=== PATIENT | female | born 1985 | race Caucasian/White ===

== ENCOUNTER 2020-08-03 08:07 | Outpatient (CLI) | payer OTHER, SELFPAY ==
[2020-08-03 09:03] LABS: Glucose Fasting Gestational 98 mg/dL (>/=95)
[2020-08-03 10:29] LABS: Glucose 1 Hour Gest 228 mg/dL (>/=180)
[2020-08-03 11:46] LABS: Glucose 2 Hour Gest 172 mg/dL (>/= 155)
[2020-08-03 12:38] LABS: Glucose 3 Hour Gest 106 mg/dL (>/=140)
== END 2020-08-03 08:08 | disposition home or self-care (01) ==
LOC: ANHLAB 08:17
PROVIDERS: PCP Physician Assistant; Visit Provider Obstetrics & Gynecology
DX: Z34.80 Encounter for supervision of other normal pregnancy, unspecified trimester (principal); Z3A.00 Weeks of gestation of pregnancy not specified
CPT/HCPCS: 36415; 82951; 82952

== ENCOUNTER 2020-08-14 13:16 | Outpatient (RCR) | payer OTHER, SELFPAY | END 2020-10-30 14:43 | disposition home or self-care (01) | LOC: ANHDMC 13:16 | PROVIDERS: PCP Physician Assistant; Visit Provider Obstetrics & Gynecology | DX: O24.410 Gestational diabetes mellitus in pregnancy, diet controlled (principal); Z3A.00 Weeks of gestation of pregnancy not specified; Z71.89 Other specified counseling | CPT/HCPCS: G0108 ==

== ENCOUNTER 2020-09-14 14:52 | Outpatient (RCR) | payer OTHER, SELFPAY ==
[2020-08-08 17:33] VITALS: BP 122/71; PULSE 90
[2020-08-16 08:22] VITALS: BP 120/69; PULSE 94
[2020-09-01 16:25] VITALS: BP 118/72; PULSE 85
[2020-09-07 16:16] VITALS: BP 120/80; PULSE 91
[2020-09-14 15:29] VITALS: BP 115/68; PULSE 85
== END 2020-09-25 07:42 | disposition home or self-care (01) ==
LOC: ANHOBOP 14:52
PROVIDERS: PCP Physician Assistant; Visit Provider Obstetrics & Gynecology
DX: O24.419 Gestational diabetes mellitus in pregnancy, unspecified control (principal); Z3A.32 32 weeks gestation of pregnancy; Z3A.33 33 weeks gestation of pregnancy; Z3A.34 34 weeks gestation of pregnancy; Z3A.36 36 weeks gestation of pregnancy; Z3A.37 37 weeks gestation of pregnancy
CPT/HCPCS: 59025

== ENCOUNTER 2020-09-20 08:11 | Outpatient (CLI) | payer OTHER, SELFPAY ==
[2020-09-20 08:49] LABS: Hematocrit 37.6 % (37.0-47.0); Hemoglobin 12.9 g/dL (12.0-15.0); Mean Corpuscular HGB Conc 34.3 g/dl (32-36); Mean Corpuscular Volume 93.3 fl (80-100); Mean Platelet Volume 10.8 fl (7.4-10.4); Platelet Count Result 182 k/mm3 (150-375); Red Blood Count 4.03 M/mm3 (4.2-5.4); Red Cell Distribution Width 13.4 % (11.5-14.5)
[2020-09-20 11:37] LABS: Rapid Plasma Reagin Non-Reactive (NonReactive)
--- NOTE | 2020-09-22 09:13 | P.HP_ITS ---
H&P: HPI History of Present Illness Date/Time: 09/22/20 09:13 Chief Complaint: Here for c section Narrative: 35 y/o at 39 weeks gestation with A1DM here for scheduled repeat . complicated by COVID-19 infection in June. She has made a full recovery. She had many delays in working up and monitoring her gestational diabetes, but her glycemic control has been overall OK with diet con trol. She had a prior and desires a repeat. EFW on US at 34 w 6 d was 50th percentile, 5#10oz. Review of Systems Review of Systems: All systems reviewed & are unremarkable except as noted in HPI and below PMFSH Past Medical History Medical History Anxiety Surgical History Surgical History History of delivery History of surgery on wrist Meds Home Medications and Allergies Home Medications Medication Instructions Recorded Confirmed Type PNV cmb#95-ferrous fumarate-FA 1 tablet PO DAILY 08/16/20 08/16/20 History [] Allergies Allergy/AdvReac Type Severity Reaction Status Date / Time No Known Allergies Allergy Mild Verified 08/16/20 08:00 Exam Const: Orientation/consciousness: patient oriented x3 Other: Well- developed, well-nourished female in no acute distress. Neck: Thyroid: thyroid normal Lymphatic: no lymphadenopathy noted (in neck, axilla or inguinal nodes) Resp: Effort & Inspection: normal respiratory effort Auscultation: clear to auscultation bilaterally Cardio: Rate: regular rate Rhythm: regular rhythm Heart sounds: S1 normal heart sound present and S2 normal heart sound present GI: Other: ABD: Soft, nontender, nondistended, gravid. FHR auscultated. FH 38 cm. No guarding or rebound tenderness. No hepatosplenomegaly. : General: Yes no CVA tenderness Other: Cervix closed, thick Back/Spine/Pelvis: Back: no CVA tenderness Skin: General skin exam: normal color and no rashes or lesions noted Neuro: General: patient oriented x3 Extrem: Other: Extremities: nontender with no edema Psych: Mental Status: mental status grossly normal Affect: normal affect Assessment and Plan Assessment and plan (1) Gestational diabetes mellitus (GDM): Code(s): O24.419 - Gestational diabetes mellitus in , unspecified control Status: Acute (2) History of delivery: Code(s): Z98.891 - History of uterine scar from previous surgery Status: Acute Assessment and Plan: A: IUP at 39 weeks with prior , current A1DM. P: Reviewed TOLAC vs repeat . She desires the latter. She understands risks of surgery to include risks of anesthesia, risks of pain, infection, bleeding, blood products, thromboembolic phenomena and damage to adjacent structures such as bowel, bladder, ureters, blood vessels and nerves. She understands all these risks and elects to proceed with surgery.
== END 2020-09-20 08:12 | disposition home or self-care (01) ==
PROVIDERS: PCP Physician Assistant; Visit Provider Obstetrics & Gynecology
DX: Z01.818 Encounter for other preprocedural examination (principal); Z98.891 History of uterine scar from previous surgery; O24.419 Gestational diabetes mellitus in pregnancy, unspecified control
CPT/HCPCS: 36415; 85027; 86592; 86850; 86900; 86901

== ENCOUNTER 2020-09-22 09:37 | Inpatient (IN) | payer OTHER, SELFPAY ==
[2020-09-22] VITALS (63 sets, daily range): BP systolic 86–128; BP diastolic 59–98; PULSE 51–100; RESP 12–18; TEMP 36.3–37.2; O2SAT 96–100; BMI 37.9
--- NOTE | 2020-09-22 09:21 | HP_ITS ---
This report was moved to the correct visit, [id number] on 09/27/20. Original report was signed by Vinicius Harris MD on 09/22/20 09. H&P: HPI History of Present Illness Date/Time: 09/22/20 09:13 Chief Complaint: Here for c section Narrative: 35 y/o at 39 weeks gestation with A1DM here for scheduled repeat . complicated by COVID-19 infection in June. She has made a full recovery. She had many delays in working up and monitoring her gestational diabetes, but her glycemic control has been overall OK with diet control. She had a prior and desires a repeat. EFW on US at 34 w 6 d was 50th percentile, 5#10oz. Review of Systems Review of Systems: All systems reviewed & are unremarkable except as noted in HPI and below PMFSH Past Medical History Medical History Anxiety Surgical History Surgical History History of delivery History of surgery on wrist Meds Home Medications and Allergies Home Medications Medication Instructions Recorded Confirmed Type PNV cmb#95-ferrous fumarate-FA 1 tablet PO DAILY 08/16/20 08/16/20 History [] Allergies Allergy/AdvReac Type Severity Reaction Status Date / Time No Known Allergies Allergy Mild Verified 08/16/20 08:00 Exam Const: Orientation/consciousness: patient oriented x3 Other: Well-developed, well-nourished female in no acute distress. Neck: Thyroid: thyroid normal Lymphatic: no lymphadenopathy noted (in neck, axilla or inguinal nodes) Resp: Effort & Inspection: normal respiratory effort Auscultation: clear to auscultation bilaterally Cardio: Rate: regular rate Rhythm: regular rhythm Heart sounds: S1 normal heart sound present and S2 normal heart sound present GI: Other: ABD: Soft, nontender, nondistended, gravid. FHR auscultated. FH 38 cm. No guarding or rebound tenderness. No hepatosplenomegaly. : General: Yes no CVA tenderness Other: Cervix closed, thick Back/Spine/Pelvis: Back: no CVA tenderness Skin: General skin exam: normal color and no rashes or lesions noted Neuro: General: patient oriented x3 Extrem: Other: Extremities: nontender with no edema Psych: Mental Status: mental status grossly normal Affect: normal affect Assessment and Plan Assessment and plan (1) Gestational diabetes mellitus (GDM): Code(s): O24.419 - Gestational diabetes mellitus in , unspecified control Status: Acute (2) History of delivery: Code(s): Z98.891 - History of uterine scar from previous surgery Status: Acute Assessment and Plan: A: IUP at 39 weeks with prior , current A1DM. P: Reviewed TOLAC vs repeat . She desires the latter. She understands risks of surgery to include risks of anesthesia, risks of pain, infection, bleeding, blood products, thromboembolic phenomena and damage to adjacent structures such as bowel, bladder, ureters, blood vessels and nerves. She understands all these risks and elects to proceed with surgery. Report Initialized date/time: Vinicius Harris MD 09/22/20920 Electronically signed by: Vinicius Harris MD 09/22/20920 [facility]
--- NOTE | 2020-09-22 09:37 | LDADM ---
This patient, Laura Spencer, was admitted to Labor/Delivery/Recovery 120 on 09/22/20 at 09:37. Plans for labor, pain management and were discussed with patient. Patient/family oriented to hospital policies and general routines including ID bracelet, bed and alarms, visiting hours, pain management, procedures, bathroom and other care routines, personal items, smoking policy, room service/diet and guest tray routines, security routines, and visiting hours. Patient/Family are encouraged to report perceived risks to care and to ask questions if they do not understand what they are told or what they should do. See OBIX for further documentation.
[2020-09-22] MEDS: LACTATED RINGERS 1,000 ML 125 ML IV CONT ×2 (10:25→10:54)
[2020-09-22 11:15] LABS: Glucose Point of Care 79 (65-105)
--- NOTE | 2020-09-22 11:49 | WPDANESEPPF ---
Anes - Initial Pre Proc Eval Procedure: Operation Date: 09/22/20 12:00 Proposed Procedures p Repeat Section - Vinicius Harris MD Date/Time: 09/22/20 11:49 Surgeon: Vinicius Harris MD Pre Op Diagnosis: Scheduled C Section Patient Data Age: 35 Gender: F Height: 1.63 m Weight: 100.25 kg Last Vital Signs Temp 37.1 C 09/22/20 10:50 Pulse 99 09/22/20 10:46 BP 118/75 09/22/20 10:46 Allergies Allergy/AdvReac Type Severity Reaction Status Date / Time No Known Allergies Allergy Mild Verified 08/16/20 08:00 Home Medications Medication Instructions Recorded Confirmed Type PNV cmb#95-ferrous fumarate-FA 1 tablet PO DAILY 08/16/20 08/16/20 History [] Laboratory Tests 09/22/20 11:12 POC Capillary Glucose 79 mg/dl mg/dl (65-105) Patient hx anesthesia problems: none Family hx anesthesia problems: none PMFSH Past Medical History Medical History (Updated 09/22/20 @ 11:49 by Ernie Najera MD) Anxiety Gestational diabetes mellitus (GDM) Surgical History Surgical History History of delivery History of surgery on wrist Social History Social History Smoking status: Never smoker Second hand tobacco smoke exposure: No Substance use: never Gender identity (if verbalized by the patient): Female Sexual Orientation (if Verbalized by the Patient): Straight or Heterosexual Spiritual care concerns: No Anes - Eval Final PreProcedure Day of Procedure 09/22/20 11:49 Patient weight: obese Heart: regular rate and rhythm Lungs: clear to auscultation and normal air movement Airway: Mallampati scale class II Neurological: alert and oriented Last oral intake: >/= 8 hours ASA classification: III Emergent: no Anesthetic plan: proceed Anesthesia type and monitoring: regional spinal Informed Consent: The patient's anesthetic plan and its attendant risks and benefits were discussed with the patient/family/POA. Questions were solicited and answers provided to the satisfaction of the patient/family/POA.
--- NOTE | 2020-09-22 12:07 | WPDHPUPDATE1 ---
History and Physical Update Update Date/Time: 09/22/20 12:07 History and Physical has been reviewed, including an updated exam of the patient. There are NO changes in the patient's condition. Risks, benefits, and alternatives have been discussed and questions answered. Patient agrees to proceed with procedure.
[2020-09-22] MEDS: ceFAZolin 2 GM/D5W 50 ML 2 GM/50 ML BAG IVPB (12:28)
--- NOTE | 2020-09-22 13:17 | P.PCNOB_ITS ---
OB - Delivery Note Procedure Delivery date: 09/22/20 Procedure: Procedures Operation Date: 09/22/20 12:00 <No data on this case meets the specified criteria> Repeat Low Transverse Delivery events: Gestational Diabetes Delivery monitor: external FHT and external uterine Route of delivery: (LTCS) Quantitative Blood Loss (ml): 249 Anesthesia type: Spinal Disposition: PACU Complications: None Narrative: The patient was taken to the operating room where she was prepared and draped in the usual sterile fashion in dorsal supine position with a leftward tilt. She received cefazolin preoperatively. Spinal anesthesia was found to be adequate. A Pfannenstiel skin incision was made along the previous scar line and was carried through to the underlying layer of the fascia. The fascia was incised in the midline and the incision was extended laterally. The fascia was dissected free of the underlying rectus muscles. The rectus muscles were in the midline. The peritoneum was identified, tented up and entered sharply. The peritoneal incision was extended superiorly and inferiorly with good visualization of the bladder. The bladder blade was placed. The vesicouterine peritoneum was identified, tented up and entered sharply. The incision was extended laterally and the bladder flap was developed. The bladder blade was replaced. The uterus was then incised sharply in a transverse fashion along the lower uterine segment. The incision was extended laterally. The infant's head was delivered atraumatically to the sterile field, followed by the body. The nose and mouth were bulb suctioned. After a delay, the cord was clamped and cut. The infant was handed off the field. Cord blood was collected. The placenta was removed manually and was passed off the field. The uterus was exteriorized and cleared of all clots and debris. The uterine incision was reapproximated using 0 Monocryl in a running, locked fashion. A second, imbricating layer of the same suture was placed. Excellent hemostasis resulted as did excellent reapproximation of the normal anatomy. The uterus was returned the abdomen. The pelvis was irrigated copiously with warmed normal sa line. Rigorous hemostasis was assured. The fascial layer was reapproximated using 0 Vicryl in a running fashion. The skin was closed with a running, subcuticular stitch of 4 0 Vicryl. Dermaflex was applied externally. Sponge, lap, needle and instrument counts were correct. The patient was taken to the recovery room in stable condition. The infant went to the nursery in stable condition. I was present and scrubbed the entire procedure. Baby Date of : 09/22/20 Time of : 12:46 Weeks of gestation at delivery: 39 Infant gender: Female Weight (pounds): 6 Weight (ounces): 15 presentation: vertex Placenta delivery description: Manual Removal and Normal Configuration cord vessel description: 3 Vessels and Delayed Cord Clamping score one minute: 8 score five minutes: 9
[2020-09-22] MEDS: OXYTOCIN 30 UNITS/NS 500 ML 30 UNITS/500 ML BAG 999 UNITS IV CONT (13:18)
[2020-09-22] MEDS: LACTATED RINGERS 1,000 ML 999 ML IV CONT ×2 (13:18→17:20)
--- NOTE | 2020-09-22 13:20 | PM.OBDSVD ---
DS: Admitting Diagnosis Admitting Diagnosis Admitting Diagnosis: IUP at 39 weeks Prior , desires repeat A1 Gestational Diabetes DS: Discharge Diagnosis Discharge Diagnosis (1) Gestational diabetes mellitus (GDM): Code(s): O24.419 - Gestational diabetes mellitus in , unspecified control Status: Acute (2) History of delivery: Code(s): Z98.891 - History of uterine scar from previous surgery Status: Acute OB - DS: Summary OB Procedures : None OB Procedures Intrapartum: OB Procedures: : None Peripartum Data Procedures: Procedures Operation Date: 09/22/20 12:00 <No data on this case meets the specified criteria> Yes it does. Repeat LTCS DS: Data Data Completed and Pending Labs on day of discharge: Labs from last 24 hours 09/22/20 11:12 POC Capillary Glucose 79 Discharge Plan Discharge Attending physician on discharge: Vinicius Harris Discharging Clinician: Vinicius Harris Patient Disposition: Home, Self-Care Activity: may shower, may drive after 2 weeks and pelvic rest Diet: regular Wound Care Instructions: incision open to air Discharge Instructions: Call or return if temperature above 100.4? F, increased abdominal pain, increased vaginal bleeding or any new problems. Stand Alone Forms: General Discharge Information Follow-up/Referrals: Vinicius Harris MD [Physician] - 4 Weeks Discharge Medications: New ibuprofen 600 mg tablet 600 mg PO Q6H PRN (Reason: cramps) Qty: 30 RF: 0 hydrocodone-acetaminophen 5-325 mg tablet 1 - 2 tablet PO Q6H PRN (Reason: pain) Qty: 30 RF: 0 fluoxetine 20 mg capsule 20 mg PO DAILY Qty: 30 RF: 3 No Action PNV cmb#95-ferrous fumarate-FA [] 28 mg iron- 800 mcg Tablet 1 tablet PO DAILY RF: 0 Date of admission: 09/22/20 09:37 Primary Care Provider: AndiAlex Admitting Provider: Vinicius Harris Attending physician on admission: Vinicius Harris Condition: Stable
[2020-09-22] MEDS: KETOROLAC 30 MG/ML VIAL (*BKC) IV PUSH (14:22)
[2020-09-22] MEDS: fentaNYL CITRATE INJ (*CRX) 100 MCG/2 ML VIAL 25 MCG IV PUSH (15:14)
--- NOTE | 2020-09-22 16:00 | PC.NURSE ---
Pt taken to nursery to see baby.
--- NOTE | 2020-09-22 16:40 | PC.NURSE ---
Admitted to OB Post , room 280, per stretcher. Spouse at bedside. Call light within reach.
--- NOTE | 2020-09-22 16:45 | PC.NURSE ---
Pt transferred to PP from nursery.
[2020-09-22] MEDS: OXYTOCIN 30 UNITS/NS 500 ML 30 UNITS/500 ML BAG 125 UNITS IV CONT (16:55)
--- NOTE | 2020-09-22 17:47 | PC.NURSE ---
Addendum entered by Maria Araujo RN 09/22/20 17:49: 09/22/20 at 1742 Original Note: Spoke with Hanane Nursery RN, while at bedside to get update on baby girl Tj.
[2020-09-23] VITALS: BP 115/68; PULSE 69; RESP 16; TEMP 37.1
[2020-09-23 07:00] VITALS: BP 116/75; PULSE 72; RESP 16; TEMP 36.7
--- NOTE | 2020-09-23 08:28 | PM.OBPNVD ---
OB - PN: Subj Subjective Date/time seen: 09/23/20 08:28 Narrative: Pain OK. Tolerating diet. Lab has not been able to get H/H drawn yet. OB - PN: Obj Data Labs Labs: Laboratory Results - last 24 hr 09/22/20 11:12 POC Capillary Glucose 79 OB - PN A/P Plan Comments: A: POD#1, doing well. P: Routine care. Exam Narrative: Exam Narrative: AVSS I/O OK ABD soft, nontender, fundus firm. Incision c/d/i. EXT nontender
--- NOTE | 2020-09-23 08:39 | WPDANLDNPN2 ---
Anes-Prog Note L&D-Neuraxial Date/Time: 09/23/20 08:39 Neuraxial medications: intrathecal PF morphine Opiod-related complaints: none Patient feedback: Patient satisfied with post-operative pain management.
--- NOTE | 2020-09-23 08:40 | WPDANLDPN2 ---
Anes-Prog Note L&D Date/Time: 09/23/20 08:40 Comfortable throughout: section Neuraxial method: spinal Epidural/Spinal procedure site: clean & non-tender Neuro status: Neuro function grossly intact. Cardiovascular status: normal Respiratory status: normal Airway patency: baseline Mental status: baseline Post-Op hydration status: normal Vital Signs: Last Vital Signs Temp 37.1 C 09/23/20 00:00 Pulse 69 09/23/20 00:00 Resp 16 09/23/20 00:00 BP 115/68 09/23/20 00:00 Pulse Ox 98 09/22/20 17:30 Pain score (VAS): no complaints I/O: Intake & Output 09/22/20 09/23/20 09/23/20 23:59 07:59 15:59 Intake Total 2200 1000 Output Total 196 1400 Balance 2004 - Post-procedural complaints: none Patient feedback: Patient satisfied with anesthetic care.
[2020-09-23 12:06] LABS: Basophils Percent Auto 0.5 % (0.2-1.2); Eosinophils Absolute Auto 0.2 K/mm3 (0-0.3); Eosinophils Percent Auto 2.5 % (0-4.4); Hematocrit 35.9 % (37.0-47.0); Hemoglobin 12.5 g/dL (12.0-15.0); Immature Granulocyte Absolute 0.05 K/mm3 (0.00-0.031); Immature Granulocyte Percent A 0.6 % (0-0.5); Lymphocytes Absolute Auto 1.73 K/mm3 (0.9-3.2); Lymphocytes Percent Auto 19.6 % (18.3-44.2); Mean Corpuscular HGB Conc 34.8 g/dl (32-36); Mean Corpuscular Hemoglobin 32.2 pg (26-34); Mean Corpuscular Volume 92.5 fl (80-100); Mean Platelet Volume 10.5 fl (7.4-10.4); Monocytes Absolute Auto 0.6 K/mm3 (0.1-0.6); Monocytes Percent Auto 6.7 % (2.6-8.5); Neutrophils Absolute Auto 6.2 K/mm3 (1.3-6.7); Neutrophils Percent Auto 70.1 % (45.5-73.1); Platelet Count Result 193 k/mm3 (150-375); Red Blood Count 3.88 M/mm3 (4.2-5.4); Red Cell Distribution Width 13.5 % (11.5-14.5); White Blood Count 8.8 K/mm3 (4.5-10.0)
[2020-09-23] MEDS: IBUPROFEN 600 MG TABLET PO (16:33)
[2020-09-23] MEDS: DOCUSATE SODIUM 100 MG CAPSULE PO (16:34)
[2020-09-23 18:50] VITALS: BP 109/71; PULSE 81; RESP 16; TEMP 36.9
[2020-09-24 07:15] VITALS: BP 124/85; PULSE 79; RESP 18; TEMP 36.3
[2020-09-24] MEDS: IBUPROFEN 600 MG TABLET PO (07:15)
[2020-09-24] MEDS: DOCUSATE SODIUM 100 MG CAPSULE PO (07:15)
--- NOTE | 2020-09-24 09:16 | PM.OBPNVD ---
OB - PN: Subj Subjective Date/time seen: 09/24/20 09:16 Narrative: Pain OK. Tolerating diet. Would like to go home. OB - PN: Obj Data Labs CBC & Chem 7: 09/23/20 11:58 Labs: Laboratory Results - last 24 hr 09/23/20 11:58 WBC 8.8 RBC 3.88 L Hgb 12.5 Hct 35.9 L MCV 92.5 MCH 32.2 MCHC 34.8 RDW 13.5 Plt Count 193 MPV 10.5 H Immature Gran % (Auto) 0.6 H Neut % (Auto) 70.1 Lymph % (Auto) 19.6 [place] % (Auto) 6.7 Eos % (Auto) 2.5 Baso % (Auto) 0.5 Lymph # (Auto) 1.73 [place] # (Auto) 0.6 Eos # (Auto) 0.2 Baso # (Auto) 0.0 Abs Immat Gran (auto) 0.05 H Absolute Neuts (auto) 6.2 Absolute Nucleated RBC 0.0 Nucleated RBC % 0.0 OB - PN A/P Plan Comments: A: POD#2, doing well. P: Home to f/u 4 weeks. Plan to resume fluoxetine 20 mg po daily in light of her history of depression. Exam Narrative: Exam Narrative: AVSS ABD soft, nontender, fundus firm. Incision c/d/i. EXT nontender
[2020-09-25 08:41] VITALS: BP 138/84; PULSE 68; RESP 20; TEMP 36.4; O2SAT 100
== END 2020-09-24 16:53 | disposition home or self-care (01) | DRG 788 ==
LOC: ANHLDR 13:22 → ANHOB2 16:45
PROVIDERS: Admitting Provider Obstetrics & Gynecology; PCP Physician Assistant; Visit Provider Obstetrics & Gynecology
PROC: 10D00Z1 Extraction of Products of Conception, Low, Open Approach (ICD-10-PCS; CPT 59514; principal; 2020-09-22 12:00)
DX: O24.429 Gestational diabetes mellitus in childbirth, unspecified control (principal); Z37.0 Single live birth; Z3A.39 39 weeks gestation of pregnancy; O34.211 Maternal care for low transverse scar from previous cesarean delivery; O99.214 Obesity complicating childbirth; E66.9 Obesity, unspecified; O99.344 Other mental disorders complicating childbirth; F41.9 Anxiety disorder, unspecified; Z86.16 Personal history of COVID-19
CPT/HCPCS: 36415; 82948; 85025; 85027; 86592; 86850; 86900; 86901; 88307; A9270; J0131; J0690; J1885; J2274; J2370; J2590; J3010; J7120